=== PATIENT | male | born 1960 | race Caucasian/White ===

== ENCOUNTER 2019-08-27 12:11 | Observation (INO) | payer OTHER ==
[~2019-08-27] VITALS: Ht 182.9 cm; Wt 86.4 kg
[2019-08-27 13:11] LABS: BASOPHILS ABSOLUTE AUTO 0.03 K/mm3 (0.00-0.23); BASOPHILS PERCENT AUTO 0 % (0-2); EOSINOPHILS ABSOLUTE AUTO 0.07 K/mm3 (0.00-0.68); EOSINOPHILS PERCENT AUTO 1 % (0-6); Hematocrit 39.6 % (37.0-53.0); Hemoglobin 14.3 g/dL (13.5-17.5); IMMATURE GRAN ABSOLUTE AUTO 0.03 K/mm3 (0.00-0.10); IMMATURE GRAN PERCENT AUTO 0 % (0-1); LYMPHOCYTES PERCENT AUTO 24 % (21-46); MONOCYTES ABSOLUTE AUTO 0.92 K/mm3 (0.16-1.47); MONOCYTES PERCENT AUTO 9 % (4-13); Mean Corpuscular HGB Conc 36.1 g/dL (31.5-36.5); Mean Corpuscular Volume 89 fL (80-100); Mean Platelet Volume 8.6 fL (9.1-12.4); NEUTROPHILS PERCENT AUTO 66 % (41-73); Platelet Count 273 K/mm3 (150-400); RDW Coefficient Variation 12.1 % (11.7-14.2); RDW Standard Deviation 38.1 fL (35.1-46.3); Red Blood Cell Count 4.47 M/mm3 (4.30-5.90); White Blood Cell Count 10.85 K/mm3 (4.00-11.30)
[2019-08-27 13:33] LABS: Alanine Aminotransfer (ALT/SGP 140 U/L (12-78); Albumin, Blood 4.3 g/dL (3.4-5.0); Albumin/Globulin Ratio 1.3 (0.8-1.8); Alk Phos 43 U/L (50-136); Anion Gap 12 mmol/L (6-16); Aspartate Aminotrans (AST/SGOT 77 U/L (12-37); Bilirubin, Total 1.2 mg/dL (0.1-1.0); Blood Urea Nitrogen 23 mg/dL (8-24); Bun/Creatinine Ratio 18.7 (12.0-20.0); CO2, Blood 27 mmol/L (21-32); Calcium, Blood 9.1 mg/dL (8.5-10.1); Chloride, Blood 85 mmol/L (98-108); Creatinine, Blood 1.23 mg/dL (0.60-1.20); Globulin, Blood 3.2 g/dL (2.2-4.0); Glomerular Filtration Rate >60 (60-); Glucose, Blood 184 mg/dL (70-99); Potassium, Blood 3.4 mmol/L (3.5-5.5); Sodium, Blood 124 mmol/L (136-145); Total Protein, Blood 7.5 g/dL (6.4-8.2)
[2019-08-27] MEDS ORDERED: Glucophage1000 MG PO (14:03)
[2019-08-27] MEDS ORDERED: ESCI20 PO (14:04)
[2019-08-27] MEDS ORDERED: Pravachol40 MG PO (14:04)
[2019-08-27] MEDS ORDERED: LISI20 PO (14:04)
[2019-08-27] MEDS ORDERED: BUSP10 PO (14:04)
[2019-08-27] MEDS ORDERED: GLIP10 PO (14:04)
[2019-08-27] MEDS ORDERED: Fish Oil Conc1000 MG PO (14:05)
[2019-08-27] MEDS ORDERED: UBID10 PO (14:05)
--- NOTE | 2019-08-27 17:48 | NUR ---
PT HAS BEEN SETTLED INTO ROOM. PER ER NURSE PT NEEDED ATIVAN DUE TO ANXIETY AND WAS TREATED PER EMAR. PT CAN BE WOKEN UP AND ASKED QUESTIONS, BUT IS VERY SEDATED. BED ALARM IS IN PLACE PT MAY NOT KNOW WITH HE IS DOING IF HE WAKES UP. PT CAN BE ASKED QUESTIONS, BUT HE FALLS ASLEEP QUICKLY. PT IS SLEEPING AT THIS TIME. WILL CONTINUE TO MONITOR.
[2019-08-28 04:25] LABS: BASOPHILS ABSOLUTE AUTO 0.03 K/mm3 (0.00-0.23); BASOPHILS PERCENT AUTO 0 % (0-2); EOSINOPHILS ABSOLUTE AUTO 0.04 K/mm3 (0.00-0.68); EOSINOPHILS PERCENT AUTO 1 % (0-6); Hematocrit 38.2 % (37.0-53.0); Hemoglobin 13.7 g/dL (13.5-17.5); IMMATURE GRAN ABSOLUTE AUTO 0.03 K/mm3 (0.00-0.10); IMMATURE GRAN PERCENT AUTO 0 % (0-1); LYMPHOCYTES ABSOLUTE AUTO 2.21 K/mm3 (0.84-5.20); LYMPHOCYTES PERCENT AUTO 27 % (21-46); MONOCYTES ABSOLUTE AUTO 0.72 K/mm3 (0.16-1.47); MONOCYTES PERCENT AUTO 9 % (4-13); Mean Corpuscular HGB 32.2 pg (26.0-34.0); Mean Corpuscular HGB Conc 35.9 g/dL (31.5-36.5); Mean Corpuscular Volume 90 fL (80-100); Mean Platelet Volume 8.9 fL (9.1-12.4); NEUTROPHILS ABSOLUTE AUTO 5.26 K/mm3 (1.96-9.15); NEUTROPHILS PERCENT AUTO 63 % (41-73); Platelet Count 265 K/mm3 (150-400); RDW Coefficient Variation 12.3 % (11.7-14.2); RDW Standard Deviation 39.4 fL (35.1-46.3); Red Blood Cell Count 4.26 M/mm3 (4.30-5.90); White Blood Cell Count 8.29 K/mm3 (4.00-11.30)
[2019-08-28 04:45] LABS: Alanine Aminotransfer (ALT/SGP 109 U/L (12-78); Albumin, Blood 3.5 g/dL (3.4-5.0); Albumin/Globulin Ratio 1.2 (0.8-1.8); Alk Phos 38 U/L (50-136); Anion Gap 8 mmol/L (6-16); Aspartate Aminotrans (AST/SGOT 53 U/L (12-37); Bilirubin, Total 0.6 mg/dL (0.1-1.0); Blood Urea Nitrogen 18 mg/dL (8-24); Bun/Creatinine Ratio 17.6 (12.0-20.0); CO2, Blood 26 mmol/L (21-32); Calcium, Blood 8.2 mg/dL (8.5-10.1); Chloride, Blood 99 mmol/L (98-108); Creatinine, Blood 1.02 mg/dL (0.60-1.20); Globulin, Blood 2.9 g/dL (2.2-4.0); Glomerular Filtration Rate >60 (60-); Glucose, Blood 194 mg/dL (70-99); Magnesium, Blood 1.7 mg/dL (1.6-2.4); Potassium, Blood 3.8 mmol/L (3.5-5.5); Sodium, Blood 133 mmol/L (136-145); Total Protein, Blood 6.4 g/dL (6.4-8.2)
--- NOTE | 2019-08-28 04:48 | NUR ---
TERRA[employer] WORKER HELPER SUMMARY NO ACUTE CHANGES NOTED THIS SHIFT. PT AAOX3 AND PLEASANT. HAS SLEPT MOST OF THE SHIFT. WAS A BIT DROWSY AT START OF SHIFT BUT SEEMINGLY BACK TO BASELINE SOON AFTER. AVG CIWA SCORE OF 2. PT DENIES PAIN. WAS NERVOUS TO EAT SINCE HE HAS HAD INTENSE N/V AT HOME AFTER EATING, HOWEVER PT WAS ABLE TO TOLERATE JELLO AND A TURKEY SANDWICH WITH NO N/V. HYPERTENSIVE AT START OF SHIFT WITH SBP 170'S THAT WERE DOWN TO 140'S AFTER PRN HYDRALAZINE. [employer] PSYCHOLOGIST REPORTS SR-ST 90-100'S. DID REPORT ONE BRIEF INSTANCE WHERE PT HR TOUCHED 140'S FOR A FEW MINUTES BUT HAS BEEN BACK TO AVG RANGE SINCE. LIVER FUNCTION LABS IMPROVED THIS AM AND POTASSIUM NOW WNL AT 3.8. VSS, WILL CONTINUE TO MONITOR.
--- NOTE | 2019-08-28 09:44 | NUR ---
NAUSEA/DRY HEAVING PT STATED HAVING NAUSEA AFTER EATING BREAKFAST. PT MEDICATED WITH ZOFRAN ORDERED. PT CONTINUES TO FEEL NAUSEOUS AND IS NOW DRY HEAVING. DR. AKINS NOTIFIED. OT PHENEGRAN 12.5 MG ORDERED. WILL MEDICATE AND CONTINUE TO MONITOR.
[2019-08-28] MEDS ORDERED: FOLI1 PO (10:13)
[2019-08-28] MEDS ORDERED: MAGNESIUM OXID500 MG PO (10:13)
[2019-08-28] MEDS ORDERED: VITAMIN B-650 MG PO (10:14)
[2019-08-28] MEDS ORDERED: B-1100 M1 PO (10:14)
[2019-08-28] MEDS ORDERED: ONDA4ODT MM (10:15)
--- NOTE | 2019-08-28 13:03 | NUR ---
PT TOLERATING LUNCH AT THIS TIME PT STATES HE IS TOLERATING HIS LUNCH INTAKE SO FAR. PT STATES HE WOULD FEEL READY TO DC LATER IF HE CONTINUES TO TOLERATE HIS PO INTAKE.
--- NOTE | 2019-08-28 15:24 | NUR ---
PT DISCHARGED. PT DISCHARGED AT 1520. PT IN STABLE CONDITION. TOLERATING SMALL AMOUNTS OF FOOD AT THIS TIME. PT EDUCATED ON DC INSTRUCTIONS AND FOLLOW UP APPOINTMENTS. PT MEDS FAXED TO [facility]. NO CHANGES IN ASSESSMENT PRIOR TO DC. PT DENIED NEED FOR FURTHER INSTRUCTIONS. PT WHEELED OUT BY [facility].
== END 2019-08-28 15:22 | disposition home or self-care (01) ==
LOC: ER 12:11 → MEDS 12:12 → ENPENDDIS 08-28 11:28 → MEDS 08-28 15:22
PROVIDERS: Emergency Medicine; ADMIT Internal Medicine
DX: K52.9 Noninfective gastroenteritis and colitis, unspecified (principal); F10.239 Alcohol dependence with withdrawal, unspecified; N17.9 Acute kidney failure, unspecified; K70.10 Alcoholic hepatitis without ascites; I42.8 Other cardiomyopathies; E11.9 Type 2 diabetes mellitus without complications; F32.9 Major depressive disorder, single episode, unspecified; E87.6 Hypokalemia; E87.1 Hypo-osmolality and hyponatremia; I11.0 Hypertensive heart disease with heart failure; I50.9 Heart failure, unspecified; Z79.899 Other long term (current) drug therapy; Z79.84 Long term (current) use of oral hypoglycemic drugs
CPT/HCPCS: 36415; 80053; 82947; 83690; 83735; 85025; 93005; 93010; 93306; 96361; 96365; 96368; 96372; 96375; 96376; 99285-25; A9270-GY; G0378; J0360; J1650; J2060; J2405; J2550; J3411; J3475; J3480; J7030

== ENCOUNTER → 2019-09-07 | Outpatient (CLI) | payer OTHER ==
[~2019-09-07] MED LIST: B-1100 M1 PO; BUSP10 PO; ESCI20 PO; FOLI1 PO; Fish Oil Conc1000 MG PO; GLIP10 PO; Glucophage1000 MG PO; LISI20 PO; MAGNESIUM OXID500 MG PO; ONDA4ODT MM; Pravachol40 MG PO; UBID10 PO; VITAMIN B-650 MG PO
[2019-09-07 10:47] LABS: BASOPHILS ABSOLUTE AUTO 0.07 K/mm3 (0.00-0.23); BASOPHILS PERCENT AUTO 1 % (0-2); EOSINOPHILS ABSOLUTE AUTO 0.19 K/mm3 (0.00-0.68); EOSINOPHILS PERCENT AUTO 2 % (0-6); Hematocrit 38.1 % (37.0-53.0); Hemoglobin 13.6 g/dL (13.5-17.5); IMMATURE GRAN ABSOLUTE AUTO 0.03 K/mm3 (0.00-0.10); IMMATURE GRAN PERCENT AUTO 0 % (0-1); LYMPHOCYTES ABSOLUTE AUTO 3.44 K/mm3 (0.84-5.20); LYMPHOCYTES PERCENT AUTO 36 % (21-46); MONOCYTES ABSOLUTE AUTO 0.79 K/mm3 (0.16-1.47); MONOCYTES PERCENT AUTO 8 % (4-13); Mean Corpuscular HGB 33.3 pg (26.0-34.0); Mean Corpuscular HGB Conc 35.7 g/dL (31.5-36.5); Mean Platelet Volume 8.6 fL (9.1-12.4); NEUTROPHILS ABSOLUTE AUTO 5.18 K/mm3 (1.96-9.15); NEUTROPHILS PERCENT AUTO 53 % (41-73); Platelet Count 399 K/mm3 (150-400); RDW Coefficient Variation 12.5 % (11.7-14.2); RDW Standard Deviation 42.7 fL (35.1-46.3); Red Blood Cell Count 4.09 M/mm3 (4.30-5.90)
[2019-09-07 10:49] LABS: Mean Corpuscular Volume 93 fL (80-100)
[2019-09-07 11:05] LABS: Alanine Aminotransfer (ALT/SGP 105 U/L (12-78); Albumin, Blood 4.1 g/dL (3.4-5.0); Albumin/Globulin Ratio 1.1 (0.8-1.8); Alk Phos 55 U/L (40-126); Anion Gap 11 mmol/L (6-16); Aspartate Aminotrans (AST/SGOT 42 U/L (12-37); Bilirubin, Total 0.3 mg/dL (0.1-1.0); Blood Urea Nitrogen 20 mg/dL (8-24); Bun/Creatinine Ratio 13.7 (12.0-20.0); CO2, Blood 28 mmol/L (21-32); Calcium, Blood 9.3 mg/dL (8.5-10.1); Chloride, Blood 100 mmol/L (98-108); Creatinine, Blood 1.46 mg/dL (0.60-1.20); Globulin, Blood 3.7 g/dL (2.2-4.0); Glomerular Filtration Rate 50 (60-); Glucose, Blood 237 mg/dL (70-99); Potassium, Blood 4.7 mmol/L (3.5-5.5); Sodium, Blood 139 mmol/L (136-145); Thyroid Stimulating Hormone 3.975 uIU/mL (0.360-4.800); Total Protein, Blood 7.8 g/dL (6.4-8.2)
[2019-09-07 12:53] LABS: Troponin I <0.017 ng/mL (0.000-0.040)
== END | disposition home or self-care (01) ==
LOC: LAB EV 10:42 → LAB SHORT 10:42
PROVIDERS: Physician Assistant Surgical
DX: R53.83 Other fatigue (principal)
CPT/HCPCS: 80053; 84443; 84484; 85025

== ENCOUNTER 2021-09-03 13:37 | Observation (INO) | payer OTHER ==
[~2021-09-03] VITALS: Ht 180.3 cm; Wt 77.1 kg
[2021-09-03 14:51] LABS: BASOPHILS ABSOLUTE AUTO 0.03 K/mm3 (0.00-0.23); BASOPHILS PERCENT AUTO 0 % (0-2); EOSINOPHILS ABSOLUTE AUTO 0.03 K/mm3 (0.00-0.68); EOSINOPHILS PERCENT AUTO 0 % (0-6); Hematocrit 42.1 % (37.0-53.0); Hemoglobin 15.3 g/dL (13.5-17.5); IMMATURE GRAN ABSOLUTE AUTO 0.03 K/mm3 (0.00-0.10); IMMATURE GRAN PERCENT AUTO 0 % (0-1); LYMPHOCYTES PERCENT AUTO 31 % (21-46); MONOCYTES PERCENT AUTO 8 % (4-13); Mean Corpuscular HGB 32.1 pg (26.0-34.0); Mean Corpuscular HGB Conc 36.3 g/dL (31.5-36.5); Mean Corpuscular Volume 88 fL (80-100); Mean Platelet Volume 9.2 fL (9.1-12.4); NEUTROPHILS ABSOLUTE AUTO 5.49 K/mm3 (1.96-9.15); NEUTROPHILS PERCENT AUTO 61 % (41-73); Platelet Count 301 K/mm3 (150-400); RDW Standard Deviation 39.2 fL (35.1-46.3); Red Blood Cell Count 4.76 M/mm3 (4.30-5.90); White Blood Cell Count 9.08 K/mm3 (4.00-11.30)
[2021-09-03 15:05] LABS: Alanine Aminotransfer (ALT/SGP 168 U/L (12-78); Albumin, Blood 3.9 g/dL (3.4-5.0); Alk Phos 59 U/L (50-136); Anion Gap 16 mmol/L (6-16); Aspartate Aminotrans (AST/SGOT 130 U/L (12-37); Blood Urea Nitrogen 47 mg/dL (8-24); CO2, Blood 19 mmol/L (21-32); Calcium, Blood 8.8 mg/dL (8.5-10.1); Chloride, Blood 94 mmol/L (98-108); Creatinine, Blood 1.88 mg/dL (0.60-1.20); Ethanol (Alcohol), Blood, Med 112 mg/dL; Globulin, Blood 3.9 g/dL (2.2-4.0); Glomerular Filtration Rate 37 (60-); Glucose, Blood 195 mg/dL (70-99); Potassium, Blood 4.2 mmol/L (3.5-5.5); Salicylate <1.7 mg/dL (2.8-20.0); Sodium, Blood 129 mmol/L (136-145); Total Protein, Blood 7.8 g/dL (6.4-8.2)
[2021-09-03 15:41] LABS: Influenza A, PCR NEGATIVE (NEGATIVE); Influenza B, PCR NEGATIVE (NEGATIVE); Resp Syncytial Virus, PCR NEGATIVE (NEGATIVE); SARS-Cov-2 (COVID-19) PCR, MMC NEGATIVE (NEGATIVE)
[2021-09-03 16:18] LABS: Source, Urine Clean Catch
[2021-09-03 16:21] LABS: Appearance, Urine Clear (Clear); Bilirubin, Urine Neg (Neg); Blood, Urine 2+ (Neg); Color, Urine Yellow (P-Yellow); Glucose Qualitative, Urine Neg (Neg); Ketones, Urine Neg (Neg); Leukocyte Esterase, Urine Neg (Neg); Nitrite, Urine Neg (Neg); Protein, Urine 2+ (Neg); Urobilinogen, Urine 1+ (Normal)
[2021-09-03 16:35] LABS: U Amphetamine Screen Not Detected; U Barbituate Screen Not Detected; U Benzodiazapine Screen DETECTED; U Buprenorphine Screen Not Detected; U Cannabinoids Screen Not Detected; U Cocaine Screen Not Detected; U Methadone Screen Not Detected; U Methamphetamine Screen Not Detected; U Opiates Screen Not Detected; U Oxycodone Screen Not Detected; U Phencyclidine Screen Not Detected; U Propoxyphene Screen Not Detected
[2021-09-03 16:51] LABS: Acetaminophen, Random <2.0 ug/mL (10.0-30.0)
[2021-09-03 16:54] LABS: Amorphous Light (0-Heavy)
[2021-09-03 16:55] LABS: Bacteria Mod /hpf; Red Blood Cells, Urine 0-2 /hpf (0-2); Squamous Epithelial Cells Rare /hpf (Few); White Blood Cells, Urine 0-2 /hpf (0-5)
== END 2021-09-07 00:28 ==
LOC: ER 13:37 → EOR 13:38
PROVIDERS: Physician Assistant; ADMIT Emergency Medicine
DX: F33.3 Major depressive disorder, recurrent, severe with psychotic symptoms (principal); F10.24 Alcohol dependence with alcohol-induced mood disorder; E11.9 Type 2 diabetes mellitus without complications; I11.0 Hypertensive heart disease with heart failure; I50.9 Heart failure, unspecified; K70.10 Alcoholic hepatitis without ascites; B19.20 Unspecified viral hepatitis C without hepatic coma; F17.210 Nicotine dependence, cigarettes, uncomplicated; Z20.822 Contact with and (suspected) exposure to COVID-19
CPT/HCPCS: 0241U; 36415; 80053; 81001; 85025; 86592; 87086; 93005; 93010; A9270; G0480

== ENCOUNTER 2023-03-25 12:45 | Emergency (ER) | payer OTHER ==
[~2023-03-25] VITALS: Ht 180.3 cm; Wt 79.4 kg
[2023-03-25 13:27] LABS: BASOPHILS ABSOLUTE AUTO 0.02 K/mm3 (0.00-0.23); BASOPHILS PERCENT AUTO 0 % (0-2); EOSINOPHILS ABSOLUTE AUTO 0.08 K/mm3 (0.00-0.68); EOSINOPHILS PERCENT AUTO 2 % (0-6); Hematocrit 37.6 % (37.0-53.0); Hemoglobin 13.2 g/dL (13.5-17.5); IMMATURE GRAN ABSOLUTE AUTO 0.01 K/mm3 (0.00-0.10); IMMATURE GRAN PERCENT AUTO 0 % (0-1); LYMPHOCYTES ABSOLUTE AUTO 1.55 K/mm3 (0.84-5.20); LYMPHOCYTES PERCENT AUTO 30 % (21-46); MONOCYTES PERCENT AUTO 6 % (4-13); Mean Corpuscular HGB 32.7 pg (26.0-34.0); Mean Corpuscular HGB Conc 35.1 g/dL (31.5-36.5); Mean Corpuscular Volume 93 fL (80-100); Mean Platelet Volume 8.9 fL (9.1-12.4); NEUTROPHILS ABSOLUTE AUTO 3.29 K/mm3 (1.96-9.15); NEUTROPHILS PERCENT AUTO 63 % (41-73); Platelet Count 209 K/mm3 (150-400); RDW Coefficient Variation 11.9 % (11.7-14.2); RDW Standard Deviation 41.3 fL (35.1-46.3); Red Blood Cell Count 4.04 M/mm3 (4.30-5.90); White Blood Cell Count 5.25 K/mm3 (4.00-11.30)
[2023-03-25 13:48] LABS: Albumin, Blood 3.7 g/dL (3.4-5.0); Albumin/Globulin Ratio 1.1 (0.8-1.8); Bilirubin, Total 0.3 mg/dL (0.1-1.0); Bun/Creatinine Ratio 29.2 (12.0-20.0); Creatinine, Blood 1.37 mg/dL (0.60-1.20); Globulin, Blood 3.5 g/dL (2.2-4.0); Potassium, Blood 5.5 mmol/L (3.5-5.5); Total Protein, Blood 7.2 g/dL (6.4-8.2)
[2023-03-25 15:20] LABS: Calcium, Ionized (POC) 1.24 mmol/L (1.10-1.46); Chloride (POC) 112 mmol/L (98-108); Creatinine (POC) 1.3 mg/dL (0.8-1.3); Glucose (ISTAT POC) 182 mg/dL (70-99); Hemoglobin (POC) 12.2 g/dL (13.5-17.5); Potassium (POC) 5.1 mmol/L (3.5-5.5); Sodium (POC) 140 mmol/L (135-148); Total CO2 (POC) 21 mmol/L (21-32)
[2023-03-25 15:40] VITALS: BP 136/88
[2023-03-30] MEDS ORDERED: STEGLATRO5 MG PO (13:50)
[2023-03-30] MEDS ORDERED: GABA100 PO (13:50)
[2023-03-30] MEDS ORDERED: METF500 PO (13:51)
[2023-03-30] MEDS ORDERED: ZESTRIL40 M1 PO (13:51)
[2023-03-30] MEDS ORDERED: OMEP20ER PO (13:52)
[2023-03-30] MEDS ORDERED: Desyrel150 MG PO (13:52)
== END 2023-03-25 15:42 | disposition home or self-care (01) ==
LOC: ER 12:45
PROVIDERS: Emergency Medicine; Student in an Organized Health Care Education/Training Program
DX: N17.9 Acute kidney failure, unspecified (principal); E86.0 Dehydration; Z79.899 Other long term (current) drug therapy; Z79.84 Long term (current) use of oral hypoglycemic drugs; I11.0 Hypertensive heart disease with heart failure; E11.9 Type 2 diabetes mellitus without complications; I50.9 Heart failure, unspecified; F10.20 Alcohol dependence, uncomplicated
CPT/HCPCS: 36415; 80047; 80053; 83036; 85014; 85025; 93005; 93010; 96360; 99283-25; J7030

== ENCOUNTER 2023-03-29 11:18 | Emergency (ER) | payer OTHER ==
[~2023-03-29] VITALS: Ht 180.3 cm; Wt 79.4 kg
[2023-03-29 11:35] VITALS: BP 151/75
[2023-03-29 12:14] LABS: BASOPHILS ABSOLUTE AUTO 0.02 K/mm3 (0.00-0.23); BASOPHILS PERCENT AUTO 0 % (0-2); EOSINOPHILS ABSOLUTE AUTO 0.14 K/mm3 (0.00-0.68); EOSINOPHILS PERCENT AUTO 3 % (0-6); Hematocrit 38.4 % (37.0-53.0); Hemoglobin 13.4 g/dL (13.5-17.5); IMMATURE GRAN ABSOLUTE AUTO 0.01 K/mm3 (0.00-0.10); IMMATURE GRAN PERCENT AUTO 0 % (0-1); LYMPHOCYTES ABSOLUTE AUTO 1.93 K/mm3 (0.84-5.20); LYMPHOCYTES PERCENT AUTO 36 % (21-46); MONOCYTES ABSOLUTE AUTO 0.33 K/mm3 (0.16-1.47); MONOCYTES PERCENT AUTO 6 % (4-13); Mean Corpuscular HGB 32.4 pg (26.0-34.0); Mean Corpuscular HGB Conc 34.9 g/dL (31.5-36.5); Mean Corpuscular Volume 93 fL (80-100); Mean Platelet Volume 8.9 fL (9.1-12.4); NEUTROPHILS ABSOLUTE AUTO 2.98 K/mm3 (1.96-9.15); NEUTROPHILS PERCENT AUTO 55 % (41-73); Platelet Count 220 K/mm3 (150-400); RDW Coefficient Variation 11.9 % (11.7-14.2); RDW Standard Deviation 40.6 fL (35.1-46.3); Red Blood Cell Count 4.13 M/mm3 (4.30-5.90); White Blood Cell Count 5.41 K/mm3 (4.00-11.30)
[2023-03-29 12:53] LABS: Albumin, Blood 3.7 g/dL (3.4-5.0); Bilirubin, Total 0.4 mg/dL (0.1-1.0); Bun/Creatinine Ratio 25.6 (12.0-20.0); Calcium, Blood 9.6 mg/dL (8.5-10.1); Creatinine, Blood 1.29 mg/dL (0.60-1.20); Globulin, Blood 3.7 g/dL (2.2-4.0); Potassium, Blood 5.1 mmol/L (3.5-5.5); Total Protein, Blood 7.4 g/dL (6.4-8.2)
[2023-03-30] MEDS ORDERED: STEGLATRO5 MG PO (13:50)
[2023-03-30] MEDS ORDERED: GABA100 PO (13:50)
[2023-03-30] MEDS ORDERED: METF500 PO (13:51)
[2023-03-30] MEDS ORDERED: ZESTRIL40 M1 PO (13:51)
[2023-03-30] MEDS ORDERED: OMEP20ER PO (13:52)
[2023-03-30] MEDS ORDERED: Desyrel150 MG PO (13:52)
== END 2023-03-29 16:58 | disposition home or self-care (01) ==
LOC: ER 11:18
PROVIDERS: Physician Assistant
DX: E87.5 Hyperkalemia (principal); Z79.899 Other long term (current) drug therapy; Z79.84 Long term (current) use of oral hypoglycemic drugs; E11.9 Type 2 diabetes mellitus without complications; I50.9 Heart failure, unspecified
CPT/HCPCS: 80053; 85025; 93005; 93010; 99283-25

== ENCOUNTER 2023-04-08 06:42 | Day surgery (SDC) | payer OTHER ==
[~2023-04-08] VITALS: Ht 180.3 cm; Wt 75.9 kg
[~2023-04-08 06:42] MED LIST changes: +Desyrel150 MG PO; +GABA100 PO; +METF500 PO; +OMEP20ER PO; +STEGLATRO5 MG PO; +ZESTRIL40 M1 PO
[2023-04-08] MEDS ORDERED: OMEP20ER (07:08)
[2023-04-08] MEDS ORDERED: FISH OIL 1,0001 EA10 (07:08)
[2023-04-08 09:25] VITALS: BP 135/72
--- NOTE | 2023-04-08 09:26 | NUR ---
04/08/23 0926 Karena Coy IV DC'D, CATH INTACT. PT TOLERATED WELL. COBAN/GAUZE IN PLACE
--- NOTE | 2023-04-08 11:26 | NUR ---
04/08/23 1126 Rayna Kay 5ML NACL USED FOR POLYP REMOVAL.
== END 2023-04-08 09:26 | disposition home or self-care (01) ==
LOC: ORSCSDS 06:42
PROVIDERS: Internal Medicine Gastroenterology
PROC: 0DBH8ZX Excision of Cecum, Via Natural or Artificial Opening Endoscopic, Diagnostic (ICD-10-PCS; principal; 2023-04-08 08:00)
PROC: 0DBK8ZX Excision of Ascending Colon, Via Natural or Artificial Opening Endoscopic, Diagnostic (ICD-10-PCS; principal; 2023-04-08 08:00)
PROC: 0DBL8ZX Excision of Transverse Colon, Via Natural or Artificial Opening Endoscopic, Diagnostic (ICD-10-PCS; principal; 2023-04-08 08:00)
PROC: 0DBN8ZX Excision of Sigmoid Colon, Via Natural or Artificial Opening Endoscopic, Diagnostic (ICD-10-PCS; principal; 2023-04-08 08:00)
DX: B18.2 Chronic viral hepatitis C (principal); Z12.11 Encounter for screening for malignant neoplasm of colon; D12.2 Benign neoplasm of ascending colon; D12.0 Benign neoplasm of cecum; D12.3 Benign neoplasm of transverse colon; D12.5 Benign neoplasm of sigmoid colon; K21.9 Gastro-esophageal reflux disease without esophagitis; E11.9 Type 2 diabetes mellitus without complications; Z80.0 Family history of malignant neoplasm of digestive organs; I10 Essential (primary) hypertension; Z79.84 Long term (current) use of oral hypoglycemic drugs; Z79.899 Other long term (current) drug therapy; Z87.891 Personal history of nicotine dependence; K57.30 Diverticulosis of large intestine without perforation or abscess without bleeding
CPT/HCPCS: 82947; 88305; J2704; J7120